=== PATIENT | female | born 1990 | race Caucasian/White ===

== ENCOUNTER 2021-11-08 08:46 | Outpatient (CLI) | payer OTHER ==
--- NOTE | 2021-11-08 09:25 | XRAY Report ---
PROCEDURE: Ankle 3 View LT INDICATIONS: L ANKLE PX TECHNIQUE: 3 views of the ankle were acquired. COMPARISON: None FINDINGS: Bones: No fractures or dislocations. Ankle mortise is normally aligned. No suspicious bony lesions . Soft tissues: No tibiotalar joint effusion. Achilles tendon appears normal. IMPRESSION: Normal left ankle Reviewed by: Miky Remy on 11/08/2021 9:24 AM PDT Approved by: Miky Remy on 11/08/2021 9:24 AM PDT Station ID: [id number]
== END 2021-11-08 08:47 | disposition home or self-care (01) ==
LOC: DI.N 08:46
PROVIDERS: ATTEND Internal Medicine
DX: M25.572 Pain in left ankle and joints of left foot (principal)